=== PATIENT | female | born 1950 | race Caucasian/White ===

== ENCOUNTER 2017-07-27 14:00 | Emergency (ER) | payer SELFPAY, OTHER ==
[2017-07-27 15:10] LABS: ADD MAN DIFF? NO
[2017-07-27 15:28] LABS: WHITE BLOOD COUNT 7.5 10^3/ul (4.8-10.8)
[2017-07-27 15:28] LABS: BASOPHIL # 0.1 10^3/ul (0.0-0.1); BASOPHILS % 1.1 % (0.0-2.0); EOSINOPHILS # 0.1 10^3/ul (0.0-0.5); EOSINOPHILS % 1.9 % (0.0-7.0); HEMATOCRIT 40.9 % (37.0-47.0); HEMOGLOBIN 13.6 g/dl (12.0-16.0); LYMPHOCYTES # 1.9 10^3/ul (0.8-2.9); LYMPHOCYTES % 25.1 % (15.0-51.0); MEAN CORPUSCULAR HEMOGLOBIN 32.2 pg (29.0-33.0); MEAN CORPUSCULAR HGB CONC 33.3 g/dl (32.0-37.0); MEAN CORPUSCULAR VOLUME 96.9 fl (82.0-101.0); MEAN PLATELET VOLUME 10.6 fl (7.4-10.4); MONOCYTE # 0.6 10^3/ul (0.3-0.9); MONOCYTES % 7.6 % (0.0-11.0); NEUTROPHIL # 4.8 10^3/ul (1.6-7.5); PLATELET COUNT 203 10^3/UL (140-415); RED BLOOD COUNT 4.22 10^6/ul (4.20-5.40); RED CELL DISTRIBUTION WIDTH 12.7 % (11.5-14.5)
[2017-07-27 15:37] LABS: INR 0.93; PROTIME 12.5 Sec (11.9-14.9)
[2017-07-27 15:38] LABS: PARTIAL THROMBOPLASTIN TIME 29.7 Sec (25.0-35.0)
[2017-07-27 15:41] LABS: ANION GAP 16 (8-16); BLOOD UREA NITROGEN 20 mg/dl (7-20); CALCIUM 10.9 mg/dl (8.4-10.2); CARBON DIOXIDE 26 mmol/L (21-31); CHLORIDE 105 mmol/L (97-110); CREATININE 0.66 mg/dl (0.44-1.00); GLUCOSE 111 mg/dl (70-220); POTASSIUM 3.8 mmol/L (3.5-5.1); SODIUM 143 mmol/L (135-144)
[2017-07-27 15:59] LABS: TROPONIN-I < 0.012 ng/ml (0.00-0.12)
== END 2017-07-27 16:58 | disposition home or self-care (01) ==
LOC: E/R 14:00
DX: R55 Syncope and collapse (principal)
CPT/HCPCS: 36415; 70450; 80048; 82962; 84484; 85025; 85610; 85730; 93005; 99285-25

== ENCOUNTER 2017-10-23 07:25 | Emergency (ER) | payer MEDICAID ==
[2017-10-23 07:52] LABS: OCCULT BLOOD STOOL POSITIVE (NEGATIVE)
== END 2017-10-23 08:20 | disposition home or self-care (01) ==
LOC: E/R 07:25
DX: K64.4 Residual hemorrhoidal skin tags (principal)
CPT/HCPCS: 82270; 99284